=== PATIENT | male | born 1970 | race Caucasian/White ===

== ENCOUNTER 2016-10-18 05:34 | Emergency (ER) | payer BC ==
[~2016-10-18] VITALS: Ht 172.7 cm; Wt 144.1 kg
[2016-10-18 05:37] VITALS: TEMP 36.7; Ht 172.7 cm; Wt 144.1 kg
[2016-10-18] MEDS ORDERED: LSN/10125 PO (06:09)
[2016-10-18] MEDS ORDERED: SERT50TA PO (06:10)
[2016-10-18] MEDS ORDERED: CHN/1 PO (06:11)
[2016-10-18] MEDS ORDERED: HYDR-5688 PO (07:35)
--- NOTE | 2016-10-18 07:36 | EMERGENCY ROOM VISIT NOTE ---
History First contact with patient: 05:41 Chief Complaint: FOOT PAIN Stated Complaint: SEVERE PAIN IN RIGHT FOOT History of Present Illness The patient is a 46 year old male who presents to the Emergency Room with complaints of right foot pain. The patient states that he developed foot pain 3 -4 days ago. The pain has been gradually worsening. This is worse with walking and weightbearing. He states it feels better when he has a boot laced tightly on the foot. He rates his discomfort a 7/10. The pain is located on the outside of the foot. He does state that he used to be a heavy drinker and quit drinking cold turkey 2 weeks ago. He denies any trauma to the foot. He denies any history of gout or arthritis. He denies any numbness or weakness. Review of Systems A complete 6 point review of systems was reviewed with the patient with pertinent positives and negatives as per history of present illness. All else were negative. Social History Smoking Status: Never Smoker Current/Historical Medications Scheduled Hctz/Lisinopril (Lisinopril/Hctz 10/12.5 Mg), 1 TAB PO DAILY Sertraline (Zoloft), 50 MG PO DAILY Varenicline (Chantix), 1 MG PO BID Scheduled PRN Hydrocodone/Acetaminophen 5MG/325MG ([place] 5MG/325MG), 1-2 TABLET PO Q4H PRN for Pain Allergies Coded Allergies: No Known Allergies (Unverified , 10/18/16) Physical Exam Vital Signs Date Time Temp Pulse Resp B/P (MAP) Pulse Ox O2 Delivery O2 Flow Rate FiO2 10/18/16 07:48 85 20 135/87 99 10/18/16 05:37 36.7 98 18 149/90 97 Room Air Physical Exam VITALS: Vitals are noted on the nurse's note and reviewed by myself. Vital signs stable. GENERAL: This is a 46-year-old male, in no acute distress, nondiaphoretic, well- developed well-nourished. SKIN: There is no erythema, ecchymosis or edema. MUSCULOSKELETAL: No deformities. There is tenderness along the lateral aspect of the right foot. No tenderness over the rest of the foot. No tenderness of the ankle. Full range of motion of all toes. Dorsalis pedis pulse 2+. NEURO: Patient was alert and oriented to person place and time. Normal sensation to light and sharp touch. Medical Decision & Procedures ER Provider Diagnostic Interpretation: RIGHT FOOT 3 VIEWS FINDINGS: 3 views of the right foot are obtained. No prior studies are available for comparison at the time of dictation. The skeletal structures are well mineralized. No fracture is seen. Mild degenerative spurring is seen along the dorsal aspect of the tarsal bones. There is a large plantar calcaneal enthesophyte. Mild soft tissue swelling is noted in the foot. IMPRESSION: 1. Mild soft tissue swelling with no radiographic evidence of fracture. 2. Large plantar heel spur. Medical Decision Differential diagnosis includes fracture, contusion, sprain, gout, infection, among others. Patient was evaluated as above. There is no redness or warmth of the foot. X- ray was obtained and shows no acute findings over the area of concern. The patient was concerned for gout because he quit drinking recently. I explained to him that gout is typically associated with heavy drinking and occurs over a joint and I do not feel this is likely the cause of his symptoms today. He could have a stress fracture or muscular injury. He was dazed in a postoperative shoe and instructed to follow-up with his primary care provider or orthopedics. He was given a short course of pain medication. He verbalized understanding of my assessment and treatment plan was discharged home in good condition. Medication reconciliation: I attest that I have personally reviewed the patient 's current medication list. Blood Pressure Screening: Patient was found to have a slightly elevated blood pressure due to circumstances. I do not believe that the patient requires hypertension monitoring. [place] Drug Monitoring Program Search Results: patient reviewed within database, no issues identified Impression Primary Impression: Foot pain Departure Information Dispostion Home / Self-Care Condition GOOD Prescriptions Hydrocodone/Acetaminophen 5MG/325MG ([place] 5MG/325MG) Tab 1-2 TABLET PO Q4H Y for Pain, #10 TAB For Initial Treatment Prov: Gloria Joel ., PITA 10/18/16 Referrals No Doctor, Assigned (PCP) Patient Instructions My [facility] Additional Instructions You have been treated in the Emergency Department for foot pain. You have been prescribed [place] to be used for pain control. This is a narcotic medication. You cannot drive or consume alcohol while on this medicine. This medicine should only be used for pain that cannot be controlled with over-the- counter pain medicines. For pain control, you can use the following [id number] medicines (if >12 yo): - Regular strength (325mg/tab) Tylenol (acetaminophen) 2 tabs every 4-6 hours as needed. Do not exceed 12 tablets in a 24 hour period. Avoid taking more than 4 grams (4000 mg) of Tylenol per day. This includes any other sources of acetaminophen you may take on a regular basis. If this is a recent injury (<24 hrs), ice can be applied to the area of pain for the first 3 days to help decrease pain and inflammation. Wear the Deni wrap and postoperative shoe for the next 3-4 days, then as needed. If you have persistent pain, you should follow-up with your primary care provider. Return to the Emergency Department if your current symptoms worsen despite treatment course outlined above, or if you develop any of the following symptoms : intractable pain despite aforementioned treatment course or new onset of numbness or tingling of the foot. Problem Qualifiers Primary Impression: Foot pain Laterality: right Qualified Codes: M79.671 - Pain in right foot
--- NOTE | 2016-10-18 07:36 | DIAGNOSTIC IMAGING REPORT ---
RIGHT FOOT 3 VIEWS CLINICAL HISTORY: Right foot pain. FINDINGS: 3 views of the right foot are obtained. No prior studies are available for comparison at the time of dictation. The skeletal structures are well mineralized. No fracture is seen. Mild degenerative spurring is seen along the dorsal aspect of the tarsal bones. There is a large plantar calcaneal enthesophyte. Mild soft tissue swelling is noted in the foot. IMPRESSION: 1. Mild soft tissue swelling with no radiographic evidence of fracture. 2. Large plantar heel spur. Electronically signed by: Jeronimo Toribio M.D. 10/18/2016 7:34 AM Dictated Date/Time: 10/18/2016 7:33 AM
[2016-10-18 07:48] VITALS: BP 135/87; PULSE 85; O2SAT 99
== END 2016-10-18 07:49 | disposition home or self-care (01) ==
LOC: C.EDB 05:36
DX: M79.671 Pain in right foot (principal); Z79.899 Other long term (current) drug therapy

== ENCOUNTER 2017-04-18 09:38 | Inpatient (IN) | payer BC, OTHER ==
[~2017-04-18] VITALS: Ht 175.3 cm; Wt 146.0 kg
[~2017-04-18 09:38] MED LIST: CHN/1 PO; HYDR-5688 PO; LSN/10125 PO; SERT50TA PO
[2017-04-18] MEDS ORDERED: SODIUM CHLORIDE 0.9% 500ML 500 ML IV STA (10:04)
[2017-04-18 10:30] LABS: BASO % 0.4 %; BASO ABS # 0.03 K/uL (0-0.2); EOS ABS # 0.07 K/uL (0-0.5); HEMATOCRIT 37.4 % (42-52); HEMOGLOBIN 12.1 g/dL (14.0-18.0); IG# 0.02 K/uL (0.00-0.02); LYMPH % 9.3 %; LYMPH ABS # 0.64 K/uL (1.2-3.4); MEAN CELL VOLUME 74.1 fL (80-100); MEAN CORPUSCULAR HGB CONC 32.4 g/dl (32-36); MEAN PLATELET VOLUME 9.2 fL (7.4-10.4); MONO % 3.6 %; MONO ABS # 0.25 K/uL (0.11-0.59); NEUT % 85.4 %; NEUT ABS # 5.88 K/uL (1.4-6.5); PLATELET COUNT 167 K/uL (130-400); RED CELL DISTRIBUTION WIDTH SD 45.5 fL (36.4-46.3); WHITE BLOOD COUNT 6.89 K/uL (4.8-10.8)
[2017-04-18 10:50] LABS: ALBUMIN 3.6 gm/dl (3.4-5.0); CALCIUM 8.4 mg/dl (8.5-10.1); CREATININE 0.98 mg/dl (0.60-1.40); POTASSIUM 3.4 mmol/L (3.5-5.1)
[2017-04-18] MEDS ORDERED: SODIUM CHLORIDE 0.9% 1000ML 1,000 ML IV STA (10:51)
[2017-04-18] MEDS ORDERED: BUPR-79 PO (10:52)
[2017-04-18] MEDS ORDERED: METF-384 PO (10:52)
[2017-04-18] MEDS ORDERED: ATOR-24 PO (10:52)
[2017-04-18 11:01] LABS: TOTAL PROTEIN 8.3 gm/dl (6.4-8.2)
--- NOTE | 2017-04-18 11:54 | DIAGNOSTIC IMAGING REPORT ---
CHEST ONE VIEW PORTABLE CLINICAL HISTORY: Atrial fibrillation. Weakness. COMPARISON STUDY: No previous studies for comparison. FINDINGS: Lung volumes are at the lower limits of normal. There is no pneumothorax or pleural effusion. There is suspected elevation/eventration of the right hemidiaphragm. There is mild cardiomegaly without evidence of pulmonary edema. There is no consolidation. IMPRESSION: 1. Mild cardiomegaly without evidence of pulmonary edema. 2. Mild elevation/eventration of the right hemidiaphragm. Electronically signed by: Fran Mo M.D. 04/18/2017 11:53 AM Dictated Date/Time: 04/18/2017 11:52 AM
[2017-04-18] MEDS ORDERED: DEXTROSE 50% 50 ML SYR IV PRN (12:15)
[2017-04-18] MEDS ORDERED: GLUCOSE 40% GEL 15 GM TUBE PO PRN (12:15)
[2017-04-18] MEDS ORDERED: GLUCAGON FOR INJ 1 MG VIAL SQ PRN (12:15)
[2017-04-18] MEDS ORDERED: GLUCOSE 10 TABS/TUBE PO PRN (12:15)
[2017-04-18 12:28] VITALS: O2SAT 98; Ht 175.3 cm; Wt 146.0 kg
[2017-04-18] MEDS ORDERED: LORAZEPAM 1 MG TAB PO PRN (12:30)
[2017-04-18] MEDS ORDERED: HEPARIN 25000 UNIT/500 ML D5W ONE (12:54)
[2017-04-18 13:09] LABS: PTT PATIENT 23.2 SECONDS (21.0-31.0)
--- NOTE | 2017-04-18 13:25 | History and Physical ---
History & Physical Date & Time of Service: Apr 18, 2017 at 12:44 Chief Complaint: Severe Depression, Needs Detox (Alcohol) Primary Care Physician: No Doctor, Assigned History of Present Illness Source: patient This patient is a 46-year-old male with a history of obesity status post gastric bypass surgery, depression, hypertension, hyperlipidemia, prediabetes versus diabetes, who presents to the ER with complaint of severe depression and need for alcohol detoxification. He was found in what was thought to be new onset atrial flutter with a rate in the low 100s, as well as a significant transaminitis. However, review of ECGs with marine operations coordinator confirms he is in normal sinus rhythm with artifact. He was found to be dehydrated with hypokalemia and a bicarbonate of 19 with an anion gap. He was initially hypertensive which improved with giving him his home dose of lisinopril/HCT. He denies any chest pain, shortness of breath, abdominal pain, nausea/vomiting, diarrhea, constipation, bloody stools, or any other symptoms. He denies suicidal or homicidal ideations and is very eager to get help for his substance abuse issues. He has no history of alcohol withdrawal in the past. He reports he normally drinks several beers a day with dinner, but for the last week, he has drank 3 large handle jugs of rum in a one-week period. He also reports stopping all of his medications about 2 weeks ago. He will be admitted for alcohol detoxification, hepatitis most likely of the alcoholic type. Past Medical/Surgical History PMH: obesity status post gastric bypass surgery depression hypertension hyperlipidemia prediabetes versus diabetes PSH: Gastric bypass surgery-2001 Ventral hernia repair Tibial osteotomy with and subsequent removal of hardware Tonsillectomy Family History Father-diabetes mellitus type 2 Mother-depression Sister-healthy Social History Smoking Status: Current Every Day Smoker (smoking 5 cigarettes daily) Alcohol Use: heavy (drinks several beers with dinner daily, plus increased amount of liquor in the last week as per history of present illness) Drug Use: none Marital Status: Housing status: lives alone 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) Allergies Coded Allergies: No Known Allergies (Unverified , 04/18/17) Home Medications Scheduled Atorvastatin (Lipitor), 40 MG PO DAILY Bupropion (Wellbutrin Sr), 150 MG PO BID Hctz/Lisinopril (Lisinopril/Hctz 10/12.5 Mg), 1 TAB PO DAILY Metformin Hcl (Glucophage), 1,000 MG PO BID Review of Systems Constitutional: No fever, No chills Eyes: No problem reported ENT: No problem reported Respiratory: No shortness of breath Cardiovascular: No chest pain Abdomen: No pain, No nausea, No vomiting, No diarrhea, No constipation, No GI bleeding Musculoskeletal: No joint pain, No muscle pain Genitourinary - Male: No problem reported Neurologic: No problem reported Psychiatric: + depression symptoms, + anxiety, + substance abuse Endocrine: No problem reported Hematologic / Lymphatic: No problem reported Integumentary: No problem reported Allergic / Immunologic: No problem reported Physical Exam Vital Signs Date Time Temp Pulse Resp B/P (MAP) Pulse Ox O2 Delivery O2 Flow Rate FiO2 04/18/17 12:23 110 04/18/17 11:28 100 18 132/82 98 Room Air 04/18/17 09:40 36.7 102 20 206/122 97 Room Air General Appearance: WD/WN, no apparent distress, + obese Head: normocephalic, atraumatic Eyes: normal inspection, PERRL, EOMI, sclerae normal ENT: normal ENT inspection, hearing grossly normal, TMs normal, pharynx normal Neck: supple, no adenopathy, thyroid normal, trachea midline Respiratory/Chest: lungs clear, normal breath sounds, no respiratory distress, no accessory muscle use Cardiovascular: regular rate, rhythm, no edema, no gallop, no murmur, normal peripheral pulses Abdomen/GI: normal bowel sounds, non tender, soft, no organomegaly Back: normal inspection Extremities/Musculoskelatal: no calf tenderness, normal capillary refill, no pedal edema, normal range of motion Neurologic/Psych: alert, oriented x 3, + pertinent finding (anxious) Skin: normal color, warm/dry, no rash Lymphatic: no adenopathy Diagnostics Laboratory Results Results Past 24 Hours Test 04/18/17 10:15 04/18/17 10:16 04/18/17 12:09 Range/Units Urine Color DK YELLOW Urine Appearance CLEAR CLEAR Urine pH 5.0 4.5-7.5 Urine Specific Joiner 1.022 1.000-1.030 Urine Protein 2+ NEG Urine Glucose (UA) NEG NEG Urine Ketones 3+ NEG Urine Occult Blood 2+ NEG Urine Nitrite NEG NEG Urine Bilirubin NEG NEG Urine Urobilinogen NEG NEG Urine Leukocyte Esterase NEG NEG Urine WBC (Auto) 1-5 0-5 /hpf Urine RBC (Auto) 0-4 0-4 /hpf Urine Hyaline Casts (Auto) 10-30 0-5 /lpf Urine Epithelial Cells (Auto) 20-30 0-5 /lpf Urine Bacteria (Auto) NEG NEG Urine Opiates Screen NEG NEG Urine Methadone, Qualitative NEG NEG Urine Barbiturates NEG NEG Urine Phencyclidine (PCP) Level NEG NEG Ur Amphetamine/Methamphetamine NEG NEG MDMA (Ecstasy) Screen NEG NEG Urine Benzodiazepines Screen NEG NEG Urine Cocaine Metabolite NEG NEG Urine Marijuana (THC) NEG NEG White Blood Count 6.89 4.8-10.8 K/uL Red Blood Count 5.05 4.7-6.1 M/uL Hemoglobin 12.1 14.0-18.0 g/dL Hematocrit 37.4 42-52 % Mean Corpuscular Volume 74.1 80-100 fL Mean Corpuscular Hemoglobin 24.0 25-34 pg Mean Corpuscular Hemoglobin Concent 32.4 32-36 g/dl Platelet Count 167 130-400 K/uL Mean Platelet Volume 9.2 7.4-10.4 fL Neutrophils (%) (Auto) 85.4 % Lymphocytes (%) (Auto) 9.3 % Monocytes (%) (Auto) 3.6 % Eosinophils (%) (Auto) 1.0 % Basophils (%) (Auto) 0.4 % Neutrophils # (Auto) 5.88 1.4-6.5 K/uL Lymphocytes # (Auto) 0.64 1.2-3.4 K/uL Monocytes # (Auto) 0.25 0.11-0.59 K/uL Eosinophils # (Auto) 0.07 0-0.5 K/uL Basophils # (Auto) 0.03 0-0.2 K/uL RDW Standard Deviation 45.5 36.4-46.3 fL RDW Coefficient of Variation 17.0 11.5-14.5 % Immature Granulocyte % (Auto) 0.3 % Immature Granulocyte # (Auto) 0.02 0.00-0.02 K/uL Sodium Level 134 136-145 mmol/L Potassium Level 3.4 3.5-5.1 mmol/L Chloride Level 96 98-107 mmol/L Carbon Dioxide Level 19 21-32 mmol/L Anion Gap 19.0 3-11 mmol/L Blood Urea Nitrogen 7 7-18 mg/dl Creatinine 0.98 0.60-1.40 mg/dl Est Creatinine Clear Calc Drug Dose 136.5 ml/min Estimated GFR () 108.2 Estimated GFR (Non- 93.4 BUN/Creatinine Ratio 7.1 10-20 Random Glucose 107 70-99 mg/dl Calcium Level 8.4 8.5-10.1 mg/dl Total Bilirubin 0.5 0.2-1 mg/dl Direct Bilirubin 0.2 0-0.2 mg/dl Aspartate Amino Transf (AST/SGOT) 1600 15-37 U/L Alanine Aminotransferase (ALT/SGPT) 884 12-78 U/L Alkaline Phosphatase 130 45-117 U/L Total Creatine Kinase 1029 39-308 U/L Total Protein 8.3 6.4-8.2 gm/dl Albumin 3.6 3.4-5.0 gm/dl Lipase 173 73-393 U/L Thyroid Stimulating Hormone (TSH) 1.390 0.300-4.500 uIu/ml Salicylates Level 3.6 2.8-20 mg/dl Acetaminophen Level < 2 10-30 ug/ml Ethyl Alcohol mg/dL 114.0 0-3 mg/dl Diagnostic Radiology Chest x-ray with mild cardiomegaly, elevated right hemidiaphragm, personally reviewed by me and agree with radiology report EKG Initial ECG with normal sinus rhythm, rate 94, artifact-confirmed normal sinus rhythm with marine operations coordinator Dr. William Repeat ECG with sinus tachycardia with short PA, rate 103, no acute ischemic changes Impression Assessment and Plan This patient is a 46-year-old male with a history of obesity status post gastric bypass surgery, depression, hypertension, hyperlipidemia, prediabetes versus diabetes, who presents to the ER with complaint of severe depression and need for alcohol detoxification. He was found in what was thought to be new onset atrial flutter with a rate in the low 100s, as well as a significant transaminitis. However, review of ECGs with marine operations coordinator confirms he is in normal sinus rhythm with artifact. He was found to be dehydrated with hypokalemia and a bicarbonate of 19 with an anion gap. He was initially hypertensive which improved with giving him his home dose of lisinopril/HCT. He denies any chest pain, shortness of breath, abdominal pain, nausea/vomiting, diarrhea, constipation, bloody stools, or any other symptoms. He denies suicidal or homicidal ideations and is very eager to get help for his substance abuse issues. He has no history of alcohol withdrawal in the past. He reports he normally drinks several beers a day with dinner, but for the last week, he has drank 3 large handle jugs of rum in a one-week period. He also reports stopping all of his medications about 2 weeks ago. He will be admitted for alcohol detoxification, hepatitis most likely of the alcoholic type. Alcohol abuse/alcohol detoxification/metabolic acidosis/hypokalemia-no history of significant withdrawal in the past. Alcohol level 114 on admission. Dehydrated from poor by mouth intake over the last week -Monitor on telemetry -Alcohol withdrawal protocol with when necessary Ativan only at this time -Banana bag daily for 3 days, then transitioned to by mouth thiamine and B12 -Check B12 and thiamine levels -Encouraged abstinence -Agreeable to outpatient therapy upon discharge as per psychiatric consultation -Sinus tachycardia, not atrial flutter as initially suspected on admission- should respond to IV fluids -Replace potassium in IV fluids -Follow PRP Hepatitis-AST 1600, ALT 884, bilirubin is normal, no abdominal pain. Most likely alcoholic hepatitis and would be reversible. Platelets are normal, INR not drawn in ER. -Check liver ultrasound -Check acute viral hepatitis panel, follow LFTs daily -Check INR now -Encouraged abstinence from alcohol and this should resolve Depression-likely exacerbated by stopping antidepressant medication 2 weeks ago. He is currently not suicidal or homicidal. -Appreciate psychiatric consultation -Restart his Wellbutrin 150 mg SR by mouth twice a day and appreciate any further recommendations from psychiatry Hypertension/hyperlipidemia-blood pressure elevated on admission, improved with giving home dose of lisinopril/HCTZ -Continue lisinopril/HCT -Holding atorvastatin given transaminitis Prediabetes/borderline diabetic-as per history. -Check hemoglobin A1c -Holding metformin while inpatient -Sliding-scale insulin with carbohydrate coverage with meals and Accu-Cheks Prophylaxis-heparin subcutaneous Disposition-to home when medically stable Full code Level of Care Telemetry Resuscitation Status FULL RESUSCITATION VTE Prophylaxis VTE Risk Assessment Done? Y/N: Yes Risk Level: Moderate Given or contraindicated: Unfractionated heparin SQ
--- NOTE | 2017-04-18 13:43 | DIAGNOSTIC IMAGING REPORT ---
ABDOMINAL ULTRASOUND, RIGHT UPPER QUADRANT HISTORY: Elevated liver function tests. COMPARISON: None. FINDINGS: This exam is significantly compromised by suboptimal penetration. Hepatic echogenicity is increased. This suggests fatty infiltration. There is no biliary ductal dilatation. No gallstones are identified. The pancreas is obscured due to suboptimal penetration. There is no right hydronephrosis. IMPRESSION: 1. Technically difficult study due to suboptimal penetration. No gallstones or biliary ductal dilatation identified. Obscured pancreas. 2. Fatty liver. Electronically signed by: Fran Mo M.D. 04/18/2017 1:41 PM Dictated Date/Time: 04/18/2017 1:40 PM
--- NOTE | 2017-04-18 13:56 | EMERGENCY ROOM VISIT NOTE ---
History Report prepared by Charlie: Pankaj Bermudez Under the Supervision of: Dr. Kiet Lopez D.O. First contact with patient: 09:53 Chief Complaint: DETOX REQUEST Stated Complaint: SEVERE DEPRESSION, NEEDS DETOX (ALCOHOL) History of Present Illness The patient is a 46 year old male who presents to the Emergency Room for a detox request due to excessive alcohol drinking for the past week and a half. The patient states that he has been feeling depressed for the past week and a half starting after visiting his family during [place]. He states that he stopped taking his medications a week and a half ago, and has been held up in his house self-medicating with alcohol. The patient reports that he is drinking a little less than a fifth of liquor per day, and prior to the past week and a half he would drink a six pack of beer every night for the past couple of months. He states that his last drink of alcohol was last night. He notes that he has not been taking his Wellbutrin and has not taken his lisinopril, and he also states that he is a diabetic. The patient states that he has not been eating for the past couple of days, and he denies any suicidal ideations, homicidal ideations, and any hallucinations. He states that he has not been any fights recently, and he still has a job. The patient has no other psych disorders other than depression. Pt denies headache, change in vision, fevers, chest pain, shortness of breath, nausea, vomiting, diarrhea, pain with urination , and melena. Source of History: patient Onset: a week and a half ago Position: other (global) Quality: other (Detox request due to excessive alcohol consumption) Timing: constant Note: Associated symptoms: Depression Review of Systems See HPI for pertinent positives & negatives. A total of 10 systems reviewed and were otherwise negative. Past Medical & Surgical Medical Problems: (1) Atrial flutter with rapid ventricular response (2) Hepatitis Social History Smoking Status: Current Every Day Smoker Marital Status: single Housing Status: lives alone Occupation Status: employed Current/Historical Medications Scheduled Atorvastatin (Lipitor), 40 MG PO DAILY Bupropion (Wellbutrin Sr), 150 MG PO BID Hctz/Lisinopril (Lisinopril/Hctz 10/12.5 Mg), 1 TAB PO DAILY Metformin Hcl (Glucophage), 1,000 MG PO BID Allergies Coded Allergies: No Known Allergies (Unverified , 04/18/17) Physical Exam Vital Signs Date Time Temp Pulse Resp B/P (MAP) Pulse Ox O2 Delivery O2 Flow Rate FiO2 04/18/17 12:28 98 Room Air 04/18/17 12:23 110 04/18/17 11:28 100 18 132/82 98 Room Air 04/18/17 09:40 36.7 102 20 206/122 97 Room Air Physical Exam GENERAL: Sitting up in bed, depressed, non-toxic, and in no acute distress. EYE EXAM: normal conjunctiva. OROPHARYNX: no exudate, no erythema, lips, buccal mucosa, and tongue normal and mucous membranes are moist NECK: supple, no nuchal rigidity, no adenopathy, non-tender LUNGS: Clear to auscultation. Normal chest wall mechanics HEART: no murmurs, S1 normal and S2 normal ABDOMEN: abdomen soft, non-tender, normo-active bowel sounds, no masses, no rebound or guarding. BACK: Back is symmetrical on inspection and there is no deformity, no midline tenderness, no CVA tenderness. SKIN: no rashes and no bruising UPPER EXTREMITIES: upper extremities are grossly normal. LOWER EXTREMITIES: No pitting edema. NEURO EXAM: Normal sensorium, cranial nerves II-XII grossly intact, normal speech, no gross weakness of arms, no gross weakness of legs. Gross sensation intact. PSYCH: Denies any suicidal or homicidal ideations along with auditory or visual hallucinations. Medical Decision & Procedures ER Provider Diagnostic Interpretation: Radiology results as stated below per my review and the radiologist's interpretation: CHEST ONE VIEW PORTABLE CLINICAL HISTORY: Atrial fibrillation. Weakness. COMPARISON STUDY: No previous studies for comparison. FINDINGS: Lung volumes are at the lower limits of normal. There is no pneumothorax or pleural effusion. There is suspected elevation/eventration of the right hemidiaphragm. There is mild cardiomegaly without evidence of pulmonary edema. There is no consolidation. IMPRESSION: 1. Mild cardiomegaly without evidence of pulmonary edema. 2. Mild elevation/eventration of the right hemidiaphragm. Electronically signed by: Fran Mo M.D. 04/18/2017 11:53 AM Dictated Date/Time: 04/18/2017 11:52 AM ABDOMINAL ULTRASOUND, RIGHT UPPER QUADRANT HISTORY: Elevated liver function tests. COMPARISON: None. FINDINGS: This exam is significantly compromised by suboptimal penetration. Hepatic echogenicity is increased. This suggests fatty infiltration. There is no biliary ductal dilatation. No gallstones are identified. The pancreas is obscured due to suboptimal penetration. There is no right hydronephrosis. IMPRESSION: 1. Technically difficult study due to suboptimal penetration. No gallstones or biliary ductal dilatation identified. Obscured pancreas. 2. Fatty liver. Electronically signed by: Fran Mo M.D. 04/18/2017 1:41 PM Dictated Date/Time: 04/18/2017 1:40 PM Laboratory Results 04/18/17 10:16 Red Blood Count 5.05, Mean Corpuscular Volume 74.1, Mean Corpuscular Hemoglobin 24.0, Mean Corpuscular Hemoglobin Concent 32.4, Mean Platelet Volume 9.2, Neutrophils (%) (Auto) 85.4, Lymphocytes (%) (Auto) 9.3, Monocytes (%) (Auto) 3.6, Eosinophils (%) (Auto) 1.0, Basophils (%) (Auto) 0.4, Neutrophils # (Auto) 5.88, Lymphocytes # (Auto) 0.64, Monocytes # (Auto) 0.25, Eosinophils # (Auto) 0.07, Basophils # (Auto) 0.03 04/18/17 10:16 Test 04/18/17 10:15 04/18/17 10:16 Urine Color DK YELLOW Urine Appearance CLEAR (CLEAR) Urine pH 5.0 (4.5-7.5) Urine Specific Hext 1.022 (1.000-1.030) Urine Protein 2+ (NEG) Urine Glucose (UA) NEG (NEG) Urine Ketones 3+ (NEG) Urine Occult Blood 2+ (NEG) Urine Nitrite NEG (NEG) Urine Bilirubin NEG (NEG) Urine Urobilinogen NEG (NEG) Urine Leukocyte Esterase NEG (NEG) Urine WBC (Auto) 1-5 /hpf (0-5) Urine RBC (Auto) 0-4 /hpf (0-4) Urine Hyaline Casts (Auto) 10-30 /lpf (0-5) Urine Epithelial Cells (Auto) 20-30 /lpf (0-5) Urine Bacteria (Auto) NEG (NEG) Urine Opiates Screen NEG (NEG) Urine Methadone, Qualitative NEG (NEG) Urine Barbiturates NEG (NEG) Urine Phencyclidine (PCP) Level NEG (NEG) Ur Amphetamine/Methamphetamine NEG (NEG) MDMA (Ecstasy) Screen NEG (NEG) Urine Benzodiazepines Screen NEG (NEG) Urine Cocaine Metabolite NEG (NEG) Urine Marijuana (THC) NEG (NEG) White Blood Count 6.89 K/uL (4.8-10.8) Red Blood Count 5.05 M/uL (4.7-6.1) Hemoglobin 12.1 g/dL (14.0-18.0) Hematocrit 37.4 % (42-52) Mean Corpuscular Volume 74.1 fL (80-100) Mean Corpuscular Hemoglobin 24.0 pg (25-34) Mean Corpuscular Hemoglobin Concent 32.4 g/dl (32-36) Platelet Count 167 K/uL (130-400) Mean Platelet Volume 9.2 fL (7.4-10.4) Neutrophils (%) (Auto) 85.4 % Lymphocytes (%) (Auto) 9.3 % Monocytes (%) (Auto) 3.6 % Eosinophils (%) (Auto) 1.0 % Basophils (%) (Auto) 0.4 % Neutrophils # (Auto) 5.88 K/uL (1.4-6.5) Lymphocytes # (Auto) 0.64 K/uL (1.2-3.4) Monocytes # (Auto) 0.25 K/uL (0.11-0.59) Eosinophils # (Auto) 0.07 K/uL (0-0.5) Basophils # (Auto) 0.03 K/uL (0-0.2) RDW Standard Deviation 45.5 fL (36.4-46.3) RDW Coefficient of Variation 17.0 % (11.5-14.5) Immature Granulocyte % (Auto) 0.3 % Immature Granulocyte # (Auto) 0.02 K/uL (0.00-0.02) Prothrombin Time 10.7 SECONDS (9.0-12.0) Prothromb Time International Ratio 1.0 (0.9-1.1) Activated Partial Thromboplast Time 23.2 SECONDS (21.0-31.0) Partial Thromboplastin Ratio 0.9 Anion Gap 19.0 mmol/L (3-11) Est Creatinine Clear Calc Drug Dose 136.5 ml/min Estimated GFR () 108.2 Estimated GFR (Non- 93.4 BUN/Creatinine Ratio 7.1 (10-20) Calcium Level 8.4 mg/dl (8.5-10.1) Total Bilirubin 0.5 mg/dl (0.2-1) Direct Bilirubin 0.2 mg/dl (0-0.2) Aspartate Amino Transf (AST/SGOT) 1600 U/L (15-37) Alanine Aminotransferase (ALT/SGPT) 884 U/L (12-78) Alkaline Phosphatase 130 U/L (45-117) Total Creatine Kinase 1029 U/L (39-308) Total Protein 8.3 gm/dl (6.4-8.2) Albumin 3.6 gm/dl (3.4-5.0) Lipase 173 U/L (73-393) Thyroid Stimulating Hormone (TSH) 1.390 uIu/ml (0.300-4.500) Salicylates Level 3.6 mg/dl (2.8-20) Acetaminophen Level < 2 ug/ml (10-30) Ethyl Alcohol mg/dL 114.0 mg/dl (0-3) Laboratory results per my review. Medications Administered Medications (Trade) Dose Ordered Sig/Donald Route Start Time Stop Time Status Last Admin Dose Admin Sodium Chloride 500 ml @ 999 mls/hr Q31M STAT IV 04/18/17 10:04 04/18/17 10:34 DC 04/18/17 10:22 999 MLS/HR Sodium Chloride 1,000 ml @ 999 mls/hr Q1H1M STAT IV 04/18/17 10:51 04/18/17 11:51 DC 04/18/17 10:51 999 MLS/HR ECG Indication: toxicologic Rate (beats per minute): 94 Rhythm: atrial flutter (with variable black) Findings: Q waves (Septal), other (Normal axis, non-specific ST wave changes in the anterior leads) Comparison ECG Date: no prior available ED Course ED COURSE: Vital signs were reviewed and showed hypertension and tachycardia. The patients medical record was reviewed The above diagnostic studies were performed and reviewed. ED treatments and interventions as stated above. 0953: The patient was evaluated in room B9. A complete history and physical examination was performed. 1004: Sodium Chloride 500 ml @ 999 mls/hr IV 1051: Sodium Chloride 1000 ml @ 999 mls/hr IV 1110: I reevaluated the patient, and he was doing okay 1124: Upon reevaluation, the patient is doing well.I discussed my findings with the patient and he understands and agrees with the treatment plan. Based on the patients age, coexisting illnesses, exam and lab findings the decision to treat as an inpatient was made. The patient remained stable while under my care. The patient will be evaluated for further management. 1128: I reviewed the patient's case with Dr. Rubalcava. She will evaluate the patient for further management. Medical Decision Differential diagnosis: Etiologies such as mood disorder, infection, hypoglycemia, electrolyte abnormalities, cardiac sources, intracerebral event, toxicologic, neurologic, as well as others were entertained. Patient is a 46-year-old male who presents to ER for depression associated with alcohol abuse. He wants to go to rehabilitation. He is uncertain of why he is so depressed. He has been drinking a sixpack for the past several months but over the past 2 weeks with his depression he has been drinking close to a fifth of alcohol today. Labs were obtained along with an EKG as he was hypertensive and tachycardic. EKG shows atrial flutter with a variable block. CBC was unremarkable. BMP shows hypernatremia along with hypokalemia and a bicarbonate 19. Anion gap at 19. Creatinine was normal at 0.9. Patient has an impressive transaminitis with an AST is 1600 and a LT of 900. Alkaline phosphatase was elevated along with CK of the thousand. TSH was normal at 1.3. Patient was given fluids and he took his home dose of lisinopril. On recheck his blood pressure came down to 130s. Favor that his symptoms are secondary to alcohol and depression. Salicylates and Tylenol were negative. UA showed ketones consistent with presentation. Do not treat a flutter with RVR has his heart return down to 100 with fluids and I favor this second or 2 the alcohol as well. Patient was updated bedside admitted to internal medicine for hepatitis along with atrial flutter with RVR. Medication Reconcilliation Current Medication List: was personally reviewed by me Blood Pressure Screening Patient's blood pressure: Elevated blood pressure Blood pressure disposition: Referred to PCP Consults Time Called: 1124 Consulting Physician: Dr. Rubalcava Returned Call: 1128 I reviewed the patient's case with Dr. Rubalcava. She will evaluate the patient for further management. Impression Primary Impression: Atrial flutter with rapid ventricular response Additional Impressions: Hepatitis Hypokalemia Scribe Attestation The scribe's documentation has been prepared under my direction and personally reviewed by me in its entirety. I confirm that the note above accurately reflects all work, treatment, procedures, and medical decision making performed by me. Departure Information Dispostion Being Evaluated By Hospitalist Referrals No Doctor, Assigned (PCP) Patient Instructions My [facility] Problem Qualifiers
[2017-04-18] MEDS ORDERED: HEPARIN SOD 5000 UNIT/0.5 ML CARP SQ SCH (14:00)
[2017-04-18] MEDS ORDERED: PERFLUTREN LIPID MICROSPHERE (DEFINITY) IV ONE (14:09)
[2017-04-18 14:38] LABS: HEP C IGG 13 YRS+OLDER_RFLX NEG (NEG)
[2017-04-18] MEDS ORDERED: MULTI-VITAMIN INFUSION INJ 10 ML, THIAMINE HCL INJ 100 MG, FoLIC ACID INJ 1 MG in SODIU... IV SCH (15:00)
[2017-04-18 15:36] VITALS: BP 160/96; PULSE 109; TEMP 36.5; O2SAT 97
[2017-04-18] MEDS ORDERED: PNEUMOCOCCAL ADMINISTRATION CHARGE ONE (16:00)
[2017-04-18] MEDS ORDERED: PNEUMOCOCCAL POLYSACCHARIDES 25 MCG/0.5 ML VIAL/SYR IM. ONE (16:00)
[2017-04-18] MEDS: HEPARIN SOD 5000 UNIT/0.5 ML CARP SQ SCH ×2 (16:59→21:45)
[2017-04-18] MEDS: INSULIN HUMAN REGULAR SC SCH ×2 (16:59→20:21)
[2017-04-18] MEDS: NSS + 20MEQ KCL 1000ML 1,000 ML IV SCH (17:22)
[2017-04-18] MEDS: LORAZEPAM 0.5 MG TAB PO PRN ×2 (18:12→20:26)
[2017-04-18 19:30] LABS: CKMB 9.5 ng/ml (0.5-3.6)
[2017-04-18 20:13] VITALS: BP 114/86; PULSE 124; TEMP 36.7; O2SAT 99
[2017-04-18] MEDS: BuPROPion SR 150 MG TABCR PO SCH (20:19)
[2017-04-18 22:38] VITALS: BP 100/50; PULSE 101
[2017-04-18 23:48] VITALS: BP 137/94; PULSE 106; TEMP 36.6; O2SAT 98
[2017-04-19] VITALS (9 sets, daily range): BP systolic 139–153; BP diastolic 80–96; PULSE 87–98; TEMP 36.2–37.5; O2SAT 96–99
[2017-04-19 03:08] LABS: CKMB 5.7 ng/ml (0.5-3.6)
[2017-04-19 06:08] LABS: BASO % 0.2 %; BASO ABS # 0.01 K/uL (0-0.2); EOS % 3.7 %; EOS ABS # 0.15 K/uL (0-0.5); HEMATOCRIT 34.6 % (42-52); HEMOGLOBIN 11.1 g/dL (14.0-18.0); IG# 0.01 K/uL (0.00-0.02); LYMPH ABS # 0.65 K/uL (1.2-3.4); MEAN CELL VOLUME 73.8 fL (80-100); MEAN CORPUSCULAR HEMOGLOBIN 23.7 pg (25-34); MEAN CORPUSCULAR HGB CONC 32.1 g/dl (32-36); MEAN PLATELET VOLUME 9.1 fL (7.4-10.4); MONO % 4.9 %; NEUT ABS # 3.05 K/uL (1.4-6.5); PLATELET COUNT 138 K/uL (130-400); RED CELL DISTRIBUTION WIDTH CV 16.8 % (11.5-14.5); RED CELL DISTRIBUTION WIDTH SD 44.9 fL (36.4-46.3); WHITE BLOOD COUNT 4.07 K/uL (4.8-10.8)
[2017-04-19] MEDS: HEPARIN SOD 5000 UNIT/0.5 ML CARP SQ SCH ×3 (06:09→21:24)
[2017-04-19] MEDS: NSS + 20MEQ KCL 1000ML 1,000 ML IV SCH (06:12)
[2017-04-19 06:46] LABS: ALBUMIN 3.2 gm/dl (3.4-5.0); CALCIUM 8.9 mg/dl (8.5-10.1); POTASSIUM 3.3 mmol/L (3.5-5.1)
[2017-04-19] MEDS ORDERED: POTASSIUM CHLORIDE 10 MEQ TABCR PO STA (07:15)
[2017-04-19] MEDS: LISINOPRIL/HCTZ 10/12.5MG TAB PO SCH (07:51)
[2017-04-19] MEDS: BuPROPion SR 150 MG TABCR PO SCH (07:51)
[2017-04-19] MEDS: INSULIN HUMAN REGULAR SC SCH ×5 (07:56→22:00)
[2017-04-19] MEDS: MULTI-VITAMIN INFUSION INJ 10 ML, THIAMINE HCL INJ 100 MG, FoLIC ACID INJ 1 MG in SODIU... IV SCH (07:59)
[2017-04-19 08:30] LABS: HEMOGLOBIN A1C 6.7 % (4.5-5.6)
--- NOTE | 2017-04-19 09:02 | Psychiatric Consultation ---
Consultation Date of Consultation Apr 19, 2017. Identifying Data 46 yo male from [place] admit on 04/18/17 for ?aflutter, transaminitis and dehydration/electrolyte disturbance in the context of alcohol binge. Consult is by Dr. Rubalcava for depression. Chief Complaint "I want to get my health on track". History of Present Illness Pt admittedly drinking excessively over the holidays, off work for a week and spent the time drinking 3 large bottles of rum. He attributes the increase to the holidays being triggering as he is and his siblings are happily . He has been less focussed on his health/compliant with follow-up appointments in the past 2 years (since his divorce). His wfie was a heavy drinker and experienced significant personality change due to this and other substance abuse. 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 Overall he relates that much of this year as been good. 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 He was started on Wellbutrin "maybe" six months ago at a walk-in clinic but has never taken it consistently and in fact stopped all together over the holiday break. His sleep has been disrupted at times, mainly due to ETOH use and admits that he was regularly drinking up to 10 beers a night at times after work, even to the point that he wasn't eating dinner. He states that he "self-detoxed" this year and is aware that would put him at risk of seizure, particularly in combination with Wellbutrin. He takes his second dose of Wellbutrin in the afternoon so doesn't feel that it affects his sleep. He is embarrassed by his behavior but hopeful that he can make changes and clearly denies any SI/HI. Past Psychiatric History Current OP Treatment: no current treatment (other than meds through primary care) Prior OP Treatment: therapist (1 year ago, can't recall name) Prior Psych Hospitalizations: none Access to a Gun: No Suicide Attempts: No Past Medication Trials Paxil 10 years ago, Lexapro 2 years ago Past Medical/Surgical History History of Concussion/Seizure: No (1) H/O gastric bypass (2) Hepatitis (3) Hypokalemia (4) Atrial flutter with rapid ventricular response (5) Hyperlipidemia (6) Insulin resistance Allergies Allergies: Coded Allergies: No Known Allergies (Unverified , 04/18/17) Home Medications Scheduled Atorvastatin (Lipitor), 40 MG PO DAILY Bupropion (Wellbutrin Sr), 150 MG PO BID Hctz/Lisinopril (Lisinopril/Hctz 10/12.5 Mg), 1 TAB PO DAILY Metformin Hcl (Glucophage), 1,000 MG PO BID Family History History of Suicide: No History of Substance Abuse: No Psychiatric History: Yes (mother--depression) Alcohol Use Alcohol Use In Past 12 Months: Yes as above, no hx of DTs Smoking Use Smoking Status: Current Every Day Smoker Substance History denied Personal History Lives in: 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 Examination Vital Signs Vital Signs Past 12 Hours Date Time Temp Pulse Resp B/P (MAP) Pulse Ox O2 Delivery O2 Flow Rate FiO2 04/19/17 07:20 36.2 87 20 146/96 (113) 97 Room Air 04/19/17 04:00 Room Air 04/19/17 03:45 37.1 96 22 149/85 (106) 97 Room Air 04/18/17 23:59 Room Air 04/18/17 23:48 36.6 106 23 137/94 (108) 98 Room Air 04/18/17 22:38 101 100/50 (67) Laboratory Results Last 24 Hours Test 04/18/17 10:15 04/18/17 10:16 04/18/17 16:44 04/18/17 18:43 Urine Color DK YELLOW Urine Appearance CLEAR Urine pH 5.0 Urine Specific Dillon 1.022 Urine Protein 2+ Urine Glucose (UA) NEG Urine Ketones 3+ Urine Occult Blood 2+ Urine Nitrite NEG Urine Bilirubin NEG Urine Urobilinogen NEG Urine Leukocyte Esterase NEG Urine WBC (Auto) 1-5 /hpf Urine RBC (Auto) 0-4 /hpf Urine Hyaline Casts (Auto) 10-30 /lpf Urine Epithelial Cells (Auto) 20-30 /lpf Urine Bacteria (Auto) NEG Urine Opiates Screen NEG Urine Methadone, Qualitative NEG Urine Barbiturates NEG Urine Phencyclidine (PCP) Level NEG Ur Amphetamine/Methamphetamine NEG MDMA (Ecstasy) Screen NEG Urine Benzodiazepines Screen NEG Urine Cocaine Metabolite NEG Urine Marijuana (THC) NEG White Blood Count 6.89 K/uL Red Blood Count 5.05 M/uL Hemoglobin 12.1 g/dL Hematocrit 37.4 % Mean Corpuscular Volume 74.1 fL Mean Corpuscular Hemoglobin 24.0 pg Mean Corpuscular Hemoglobin Concent 32.4 g/dl Platelet Count 167 K/uL Mean Platelet Volume 9.2 fL Neutrophils (%) (Auto) 85.4 % Lymphocytes (%) (Auto) 9.3 % Monocytes (%) (Auto) 3.6 % Eosinophils (%) (Auto) 1.0 % Basophils (%) (Auto) 0.4 % Neutrophils # (Auto) 5.88 K/uL Lymphocytes # (Auto) 0.64 K/uL Monocytes # (Auto) 0.25 K/uL Eosinophils # (Auto) 0.07 K/uL Basophils # (Auto) 0.03 K/uL RDW Standard Deviation 45.5 fL RDW Coefficient of Variation 17.0 % Immature Granulocyte % (Auto) 0.3 % Immature Granulocyte # (Auto) 0.02 K/uL Prothrombin Time 10.7 SECONDS Prothromb Time International Ratio 1.0 Activated Partial Thromboplast Time 23.2 SECONDS Partial Thromboplastin Ratio 0.9 Sodium Level 134 mmol/L Potassium Level 3.4 mmol/L Chloride Level 96 mmol/L Carbon Dioxide Level 19 mmol/L Anion Gap 19.0 mmol/L Blood Urea Nitrogen 7 mg/dl Creatinine 0.98 mg/dl Est Creatinine Clear Calc Drug Dose 136.5 ml/min Estimated GFR () 108.2 Estimated GFR (Non- 93.4 BUN/Creatinine Ratio 7.1 Random Glucose 107 mg/dl Estimated Average Glucose 146 mg/dl Hemoglobin A1c 6.7 % Calcium Level 8.4 mg/dl Total Bilirubin 0.5 mg/dl Direct Bilirubin 0.2 mg/dl Aspartate Amino Transf (AST/SGOT) 1600 U/L Alanine Aminotransferase (ALT/SGPT) 884 U/L Alkaline Phosphatase 130 U/L Total Creatine Kinase 1029 U/L 981 U/L Total Protein 8.3 gm/dl Albumin 3.6 gm/dl Lipase 173 U/L Thyroid Stimulating Hormone (TSH) 1.390 uIu/ml Salicylates Level 3.6 mg/dl Acetaminophen Level < 2 ug/ml Ethyl Alcohol mg/dL 114.0 mg/dl Hepatitis B Surface Antigen NEG Hepatitis C Antibody NEG Bedside Glucose 243 mg/dl Creatine Kinase MB 9.5 ng/ml Creatine Kinase MB Ratio 1.0 Troponin I < 0.015 ng/ml Test 04/18/17 20:10 04/19/17 02:21 04/19/17 05:53 Bedside Glucose 206 mg/dl Total Creatine Kinase 842 U/L Creatine Kinase MB 5.7 ng/ml Creatine Kinase MB Ratio 0.7 Troponin I < 0.015 ng/ml White Blood Count 4.07 K/uL Red Blood Count 4.69 M/uL Hemoglobin 11.1 g/dL Hematocrit 34.6 % Mean Corpuscular Volume 73.8 fL Mean Corpuscular Hemoglobin 23.7 pg Mean Corpuscular Hemoglobin Concent 32.1 g/dl Platelet Count 138 K/uL Mean Platelet Volume 9.1 fL Neutrophils (%) (Auto) 75.0 % Lymphocytes (%) (Auto) 16.0 % Monocytes (%) (Auto) 4.9 % Eosinophils (%) (Auto) 3.7 % Basophils (%) (Auto) 0.2 % Neutrophils # (Auto) 3.05 K/uL Lymphocytes # (Auto) 0.65 K/uL Monocytes # (Auto) 0.20 K/uL Eosinophils # (Auto) 0.15 K/uL Basophils # (Auto) 0.01 K/uL RDW Standard Deviation 44.9 fL RDW Coefficient of Variation 16.8 % Immature Granulocyte % (Auto) 0.2 % Immature Granulocyte # (Auto) 0.01 K/uL Sodium Level 133 mmol/L Potassium Level 3.3 mmol/L Chloride Level 97 mmol/L Carbon Dioxide Level 29 mmol/L Anion Gap 7.0 mmol/L Blood Urea Nitrogen 7 mg/dl Creatinine 1.00 mg/dl Est Creatinine Clear Calc Drug Dose 133.8 ml/min Estimated GFR () 105.6 Estimated GFR (Non- 91.1 BUN/Creatinine Ratio 7.4 Random Glucose 152 mg/dl Calcium Level 8.9 mg/dl Magnesium Level 1.7 mg/dl Iron Level 39 mcg/dl Total Iron Binding Capacity 378 mcg/dl Transferrin 292 mg/dl Transferrin % Saturation 10 % Ferritin 95.7 ng/ml Total Bilirubin 0.7 mg/dl Direct Bilirubin 0.2 mg/dl Aspartate Amino Transf (AST/SGOT) 914 U/L Alanine Aminotransferase (ALT/SGPT) 732 U/L Alkaline Phosphatase 154 U/L Total Protein 7.0 gm/dl Albumin 3.2 gm/dl Mental Examination During interview pt is: alert and oriented Appearance: appropriately groomed Eye contact is: good Motor behavior is: no abnormal motor movements Speech: normal in rate, rhythm & volume Affect: mood congruent (but broad, brightens spontaneously) Mood is: depressed Thought process: clear, coherent Thought content: reality based without delusions Suicidal thought are: denied Homicidal thoughts are: denied Hallucinations: denies auditory, denies visual Cognition: memory grossly intact, attention grossly intact, language grossly intact Intelligence estimated to be: consistent with level of education Insight: fair Judgement: fair Impression / Recommendations Impression 46 yo male with hx of depressive symptoms, self medicating with ETOH. Requiring only minimal Ativan prn via AWSS and currently doesn't appear to be in withdrawal. He is s/p gastic bypass and was counseled on how this affects his absorption of ETOH and antidepressant medications. He is amenable to outpatient therapy and medication. Protective Factors Assessment Employed: Yes Recommendations recommend switching Wellbutrin to regular release due to s/p gastric bypass so 100 mg TID (last dose late afternoon) consider Neurontin if sleep issues persist as also benefit for ETOH abuse ROIs completed for [facility] and [facility], liaison to facilitate first available appointments with therapist (dual) and psychiatric prescriber
[2017-04-19] MEDS ORDERED: MAGNESIUM SULFATE 1GM / D5W 1 GM in PREMIXED IN D5W 100 ML IV ONE (10:00)
--- NOTE | 2017-04-19 10:24 | Hospitalist Progress Note ---
Hospitalist Progress Note Date of Service Apr 19, 2017. Subjective Pt evaluation today including: conversation w/ patient Voiding: no voiding problems Pt says he is feeling much better. Has a chronic c/o right 4th and 5th finger numbness for months, just noticing it again now. Denies CP or SOB. Had some sweating and shaking yesterday evening which is now resolved. Is motivated to lose weight, start exercising again, and go to counseling and Psychiatrist after discharge. Is hoping to leave tomorrow as he has an important meeting to attend tomorrow later afternoon. Reports he drank 15 cups of water yesterday (550 mL each) and has been having watery stools since then. Tele with NSR and some ST All Other Systems: Reviewed and Negative Objective Vital Signs Date Time Temp Pulse Resp B/P (MAP) Pulse Ox O2 Delivery O2 Flow Rate FiO2 04/19/17 08:00 97 Room Air 04/19/17 07:20 36.2 87 20 146/96 (113) 97 Room Air 04/19/17 04:00 Room Air 04/19/17 03:45 37.1 96 22 149/85 (106) 97 Room Air 04/18/17 23:59 Room Air 04/18/17 23:48 36.6 106 23 137/94 (108) 98 Room Air 04/18/17 22:38 101 100/50 (67) 04/18/17 20:13 36.7 124 22 114/86 (95) 99 Room Air 04/18/17 20:10 Room Air 04/18/17 16:10 Room Air 04/18/17 15:36 36.5 109 18 160/96 (117) 97 Room Air 04/18/17 12:28 98 Room Air 04/18/17 12:23 110 04/18/17 11:28 100 18 132/82 98 Room Air Physical Exam General Appearance: WD/WN, no apparent distress, + obese Eyes: normal inspection, sclerae normal ENT: hearing grossly normal Neck: trachea midline Respiratory/Chest: lungs clear, normal breath sounds, no respiratory distress, no accessory muscle use Cardiovascular: regular rate, rhythm, no edema, no gallop, no murmur Abdomen: normal bowel sounds, non tender, soft, no organomegaly, no pulsatile mass Extremities: non-tender, normal inspection, no pedal edema, no calf tenderness Neurologic/Psychiatric: alert, normal mood/affect, oriented x 3, + pertinent finding (+decreased sensation to light touch in right ulnar distribution of right hand, neg Tinel's at elbow) Skin: normal color, warm/dry, no rash Laboratory Results Last 24 Hours Test 04/18/17 10:15 04/18/17 10:16 04/18/17 16:44 04/18/17 18:43 Urine Color DK YELLOW Urine Appearance CLEAR Urine pH 5.0 Urine Specific Walsh 1.022 Urine Protein 2+ Urine Glucose (UA) NEG Urine Ketones 3+ Urine Occult Blood 2+ Urine Nitrite NEG Urine Bilirubin NEG Urine Urobilinogen NEG Urine Leukocyte Esterase NEG Urine WBC (Auto) 1-5 /hpf Urine RBC (Auto) 0-4 /hpf Urine Hyaline Casts (Auto) 10-30 /lpf Urine Epithelial Cells (Auto) 20-30 /lpf Urine Bacteria (Auto) NEG Urine Opiates Screen NEG Urine Methadone, Qualitative NEG Urine Barbiturates NEG Urine Phencyclidine (PCP) Level NEG Ur Amphetamine/Methamphetamine NEG MDMA (Ecstasy) Screen NEG Urine Benzodiazepines Screen NEG Urine Cocaine Metabolite NEG Urine Marijuana (THC) NEG White Blood Count 6.89 K/uL Red Blood Count 5.05 M/uL Hemoglobin 12.1 g/dL Hematocrit 37.4 % Mean Corpuscular Volume 74.1 fL Mean Corpuscular Hemoglobin 24.0 pg Mean Corpuscular Hemoglobin Concent 32.4 g/dl Platelet Count 167 K/uL Mean Platelet Volume 9.2 fL Neutrophils (%) (Auto) 85.4 % Lymphocytes (%) (Auto) 9.3 % Monocytes (%) (Auto) 3.6 % Eosinophils (%) (Auto) 1.0 % Basophils (%) (Auto) 0.4 % Neutrophils # (Auto) 5.88 K/uL Lymphocytes # (Auto) 0.64 K/uL Monocytes # (Auto) 0.25 K/uL Eosinophils # (Auto) 0.07 K/uL Basophils # (Auto) 0.03 K/uL RDW Standard Deviation 45.5 fL RDW Coefficient of Variation 17.0 % Immature Granulocyte % (Auto) 0.3 % Immature Granulocyte # (Auto) 0.02 K/uL Prothrombin Time 10.7 SECONDS Prothromb Time International Ratio 1.0 Activated Partial Thromboplast Time 23.2 SECONDS Partial Thromboplastin Ratio 0.9 Sodium Level 134 mmol/L Potassium Level 3.4 mmol/L Chloride Level 96 mmol/L Carbon Dioxide Level 19 mmol/L Anion Gap 19.0 mmol/L Blood Urea Nitrogen 7 mg/dl Creatinine 0.98 mg/dl Est Creatinine Clear Calc Drug Dose 136.5 ml/min Estimated GFR () 108.2 Estimated GFR (Non- 93.4 BUN/Creatinine Ratio 7.1 Random Glucose 107 mg/dl Estimated Average Glucose 146 mg/dl Hemoglobin A1c 6.7 % Calcium Level 8.4 mg/dl Total Bilirubin 0.5 mg/dl Direct Bilirubin 0.2 mg/dl Aspartate Amino Transf (AST/SGOT) 1600 U/L Alanine Aminotransferase (ALT/SGPT) 884 U/L Alkaline Phosphatase 130 U/L Total Creatine Kinase 1029 U/L 981 U/L Total Protein 8.3 gm/dl Albumin 3.6 gm/dl Lipase 173 U/L Thyroid Stimulating Hormone (TSH) 1.390 uIu/ml Salicylates Level 3.6 mg/dl Acetaminophen Level < 2 ug/ml Ethyl Alcohol mg/dL 114.0 mg/dl Hepatitis B Surface Antigen NEG Hepatitis C Antibody NEG Bedside Glucose 243 mg/dl Creatine Kinase MB 9.5 ng/ml Creatine Kinase MB Ratio 1.0 Troponin I < 0.015 ng/ml Test 04/18/17 20:10 04/19/17 02:21 04/19/17 05:53 Bedside Glucose 206 mg/dl Total Creatine Kinase 842 U/L Creatine Kinase MB 5.7 ng/ml Creatine Kinase MB Ratio 0.7 Troponin I < 0.015 ng/ml White Blood Count 4.07 K/uL Red Blood Count 4.69 M/uL Hemoglobin 11.1 g/dL Hematocrit 34.6 % Mean Corpuscular Volume 73.8 fL Mean Corpuscular Hemoglobin 23.7 pg Mean Corpuscular Hemoglobin Concent 32.1 g/dl Platelet Count 138 K/uL Mean Platelet Volume 9.1 fL Neutrophils (%) (Auto) 75.0 % Lymphocytes (%) (Auto) 16.0 % Monocytes (%) (Auto) 4.9 % Eosinophils (%) (Auto) 3.7 % Basophils (%) (Auto) 0.2 % Neutrophils # (Auto) 3.05 K/uL Lymphocytes # (Auto) 0.65 K/uL Monocytes # (Auto) 0.20 K/uL Eosinophils # (Auto) 0.15 K/uL Basophils # (Auto) 0.01 K/uL RDW Standard Deviation 44.9 fL RDW Coefficient of Variation 16.8 % Immature Granulocyte % (Auto) 0.2 % Immature Granulocyte # (Auto) 0.01 K/uL Sodium Level 133 mmol/L Potassium Level 3.3 mmol/L Chloride Level 97 mmol/L Carbon Dioxide Level 29 mmol/L Anion Gap 7.0 mmol/L Blood Urea Nitrogen 7 mg/dl Creatinine 1.00 mg/dl Est Creatinine Clear Calc Drug Dose 133.8 ml/min Estimated GFR () 105.6 Estimated GFR (Non- 91.1 BUN/Creatinine Ratio 7.4 Random Glucose 152 mg/dl Calcium Level 8.9 mg/dl Magnesium Level 1.7 mg/dl Iron Level 39 mcg/dl Total Iron Binding Capacity 378 mcg/dl Transferrin 292 mg/dl Transferrin % Saturation 10 % Ferritin 95.7 ng/ml Total Bilirubin 0.7 mg/dl Direct Bilirubin 0.2 mg/dl Aspartate Amino Transf (AST/SGOT) 914 U/L Alanine Aminotransferase (ALT/SGPT) 732 U/L Alkaline Phosphatase 154 U/L Total Protein 7.0 gm/dl Albumin 3.2 gm/dl Vitamin B12 Level 1919 pg/mL Folate 22.61 ng/mL Assessment and Plan This patient is a 46-year-old male with a history of obesity status post gastric bypass surgery, depression, hypertension, hyperlipidemia, prediabetes versus diabetes, who presents to the ER with complaint of severe depression and need for alcohol detoxification. He was found in what was thought to be new onset atrial flutter with a rate in the low 100s, as well as a significant transaminitis. However, review of ECGs with radiologist chief of breast imaging confirms he is in normal sinus rhythm with artifact. He was found to be dehydrated with hypokalemia and a bicarbonate of 19 with an anion gap. He was initially hypertensive which improved with giving him his home dose of lisinopril/HCT. He denies any chest pain, shortness of breath, abdominal pain, nausea/vomiting, diarrhea, constipation, bloody stools, or any other symptoms. He denies suicidal or homicidal ideations and is very eager to get help for his substance abuse issues. He has no history of alcohol withdrawal in the past. He reports he normally drinks several beers a day with dinner, but for the last week, he has drank 3 large handle jugs of rum in a one-week period. He also reports stopping all of his medications about 2 weeks ago. He will be admitted for alcohol detoxification, hepatitis most likely of the alcoholic type. Alcohol abuse/alcohol detoxification/metabolic acidosis/hypokalemia/Sinus tachycardia-no history of significant withdrawal in the past. Alcohol level 114 on admission. Dehydrated from poor by mouth intake over the last week. Improving, did require a few doses of ativan yesterday HCO3 normal now at 29 from 19, AG closed -Monitor on telemetry today but if ECHO normal, can transfer to medical floor later today -Alcohol withdrawal protocol with when necessary Ativan only at this time -Banana bag daily for 3 days, then transition to by mouth thiamine and B12 -Checked B12 and folate levels--> normal but drawn after given banana bag -Encouraged abstinence -Agreeable to outpatient therapy upon discharge as per psychiatric consultation -Sinus tachycardia, not atrial flutter as initially suspected on admission-has responded to IV fluids--> dc IVFs -Replaced potassium in IV fluids and po today, replace Magnesium today -Follow PRP, Magnesium -seems low risk for withdrawal, could likely dc to home tomorrow with prn ativan Rx Alcoholic Hepatitis/Hepatic steatosis-AST 1600, ALT 884, bilirubin is normal, no abdominal pain all on admission. LFTs all trending downward today. Most likely alcoholic hepatitis and would be reversible. Platelets are low-normal, INR normal Liver ultrasound with fatty liver, no gallstones, otherwise suboptimal penetration -f/u acute viral hepatitis panel, follow LFTs daily here and with PCP after dc -Encouraged abstinence from alcohol and this should resolve Major depressive disorder-likely exacerbated by stopping antidepressant medication 2 weeks ago and alcohol abuse disorder. He is currently not suicidal or homicidal. -Appreciate psychiatric consultation -recommended switching to immediate release bupropion due to gastric bypass and poor absorption--> start bupropion 100mg tid with last dose late afternoon -Psych recommends starting gabapentin for sleep at night if has difficulty with sleeping -Psych arranging outpt f/u referrals Diarrhea/H/o gastric bypass/Microcytic anemia-likely due to large volume water intake (although not recorded) but said he drank 15 of the 550 mL mugs of water yesterday in setting of gastric bypass/poor absorption. MCV low, mild anemia at 11.1 -advised to back down on po water intake -start PPI for gastric protection given increased risk of anastomosis ulcers with gastric bypass -start Fe tabs on discharge Hypertension/hyperlipidemia-blood pressure elevated on admission, improved with giving home dose of lisinopril/HCTZ -Continue lisinopril/HCT -Holding atorvastatin given transaminitis Diabetes mellitus II-HgbA1C here 6.7% which confirms DMII (pt thought "borderline diabetes" on admission) -ok to restart metformin this evening -Sliding-scale insulin with carbohydrate coverage with meals and Accu-Cheks -will need outpt PCP follow up Right cubital tunnel syndrome- chronic -recommended backwards elbow brace placement, avoidance of resting elbow on hard surfaces (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
[2017-04-19] MEDS ORDERED: PANTOprazole SOD 40 MG TAB PO ONE (10:45)
[2017-04-19] MEDS: LORAZEPAM 0.5 MG TAB PO PRN ×3 (12:00→22:21)
--- NOTE | 2017-04-19 14:16 | ECHOCARDIOGRAM REPORT ---
*NOTICE TO RECEIVING REPUBLICAN AGENCY This information is strictly Confidential and protected under [place] law. [place] law prohibits you from making any further disclosure of this information unless further disclosure is expressly permitted by the written consent of the person to whom it pertains or is authorized by law. A general authorization for the release of medical or other information is not sufficient for this purpose. Hospital accepts no responsibility if the information is made available to any other person, INCLUDING THE PATIENT. Interpretation Summary * Name: CHARMAINE CHRISTIANSON Study Date: 04/18/2017 01:23 PM BP: 132/82 mmHg * Patient Location: C.EDB HR: 110 * : 1970 (M/d/yyyy) Gender: Male Height: 69 in * Age: 46 yrs Ethnicity: [place] Weight: 319 lb * Ordering Physician: Keya Rubalcava * Referring Physician: Self, Referred * Performed By: Jesse Davis RDCS * * Reason For Study: A-Flutter * BSA: 2.5 m2 * -- Conclusions -- * The left ventricle is hyperdynamic. * No regional wall motion abnormalities noted. * Ejection Fraction = >70 %. * There is borderline concentric left ventricular hypertrophy. * Grade I diastolic dysfunction, (abnormal relaxation pattern). * No significant valvular pathology. Procedure Details * A complete two-dimensional transthoracic echocardiogram was performed (2D, M-mode, Doppler and color flow Doppler). * The study was technically difficult, but visualization was adequate with the administration of Definity ultrasound contrast. * A contrast injection of Definity was performed to improve assessment of LV function. * Contrast was injected into an intravenous site in the right arm. * One vial of Definity ultrasound contrast was diluted in normal saline to a total volume of 10 ml. A total of '2' ml of solution was administered during imaging. * Lot # [id number] of Definity utilized for procedure. * Expiration date . * The attending nurse who injected the contrast agent was STACIE Carlton. Left Ventricle * The left ventricle is normal in size. * There is borderline concentric left ventricular hypertrophy. * The left ventricle is hyperdynamic. * Ejection Fraction = >70 %. * No regional wall motion abnormalities noted. Right Ventricle * The right ventricle is grossly normal size. * The right ventricular systolic function is normal as assessed by tricuspid annular plane systolic excursion (TAPSE) (normal >1.5 cm). Atria * The left atrium is mildly dilated. * Right atrium not well visualized. * There is no evidence of atrial septal defect, but resolution does not allow assessment for a patent foramen ovale. Mitral Valve * The mitral valve is grossly normal. * There is no mitral valve stenosis. * Significant mitral regurgitation is absent. Tricuspid Valve * The tricuspid valve is not well visualized, but is grossly normal. * Significant tricuspid regurgitation is absent. Aortic Valve * The aortic valve is not well visualized. * The aortic valve opens well. * No hemodynamically significant valvular aortic stenosis. * There is no significant aortic regurgitation. Pulmonic Valve * The pulmonary valve is not well seen, but the Doppler examination is normal without significant regurgitation or stenosis. Great Vessels * The aortic root is normal size. * The pulmonary artery is not well visualized, but is probably normal size. * Normal inferior vena cava size and collapsability with sniff indicates a normal right atrial pressure of 3 mmHg Left Ventricular Diastolic Function * Grade I diastolic dysfunction, (abnormal relaxation pattern). MMode 2D Measurements and Calculations IVSd 1.2 cm IVSs 1.7 cm LVIDd 4.7 cm LVIDs 2.9 cm LVPWd 1.2 cm LVPWs 1.6 cm IVS/LVPW 1.0 FS 37.7 % EDV(Teich) 103.9 ml ESV(Teich) 33.6 ml EF(Teich) 67.7 % EDV(cubed) 105.9 ml ESV(cubed) 25.7 ml EF(cubed) 75.8 % % IVS thick 41.1 % % LVPW thick 34.6 % LV mass(C)d 215.9 grams LV mass(C)dI 85.7 grams/m\S\2 LV mass(C)s 185.0 grams LV mass(C)sI 73.5 grams/m\S\2 SV(Teich) 70.4 ml SI(Teich) 27.9 ml/m\S\2 SV(cubed) 80.2 ml SI(cubed) 31.8 ml/m\S\2 Ao root diam 3.3 cm Ao root area 8.7 cm\S\2 ACS 2.3 cm LA dimension 3.5 cm asc Aorta Diam 3.4 cm LA/Ao 1.1 LVOT diam 2.0 cm LVOT area 3.0 cm\S\2 LVAd ap4 29.9 cm\S\2 LVLd ap4 7.8 cm EDV(MOD-sp4) 92.9 ml EDV(sp4-el) 97.3 ml LVAs ap4 12.4 cm\S\2 LVLs ap4 6.1 cm ESV(MOD-sp4) 22.6 ml ESV(sp4-el) 21.3 ml EF(MOD-sp4) 75.7 % EF(sp4-el) 78.1 % LVAd ap2 33.7 cm\S\2 LVLd ap2 8.5 cm EDV(MOD-sp2) 105.1 ml EDV(sp2-el) 113.2 ml LVAs ap2 16.2 cm\S\2 LVLs ap2 7.2 cm ESV(MOD-sp2) 29.6 ml ESV(sp2-el) 31.2 ml EF(MOD-sp2) 71.9 % EF(sp2-el) 72.4 % LVLd %diff 8.4 % EDV(MOD-bp) 104.5 ml LVLs %diff 14.6 % ESV(MOD-bp) 26.9 ml EF(MOD-bp) 74.3 % SV(MOD-sp4) 70.3 ml SI(MOD-sp4) 27.9 ml/m\S\2 SV(MOD-sp2) 75.5 ml SI(MOD-sp2) 30.0 ml/m\S\2 SV(MOD-bp) 77.6 ml SI(MOD-bp) 30.8 ml/m\S\2 SV(sp4-el) 76.0 ml SI(sp4-el) 30.2 ml/m\S\2 SV(sp2-el) 82.0 ml SI(sp2-el) 32.5 ml/m\S\2 Doppler Measurements and Calculations MV E max cuco 94.6 cm/sec MV A max cuco 128.2 cm/sec MV E/A 0.74 MV dec time 0.30 sec Ao V2 max 200.1 cm/sec Ao max PG 16.0 mmHg Ao max PG (full) 5.1 mmHg FORTINO(V,A) 2.5 cm\S\2 FORTINO(V,D) 2.5 cm\S\2 LV V1 max PG 11.0 mmHg LV V1 max 165.5 cm/sec PA V2 max 126.8 cm/sec PA max PG 6.4 mmHg
[2017-04-19] MEDS: METFORMIN HCL 500 MG TAB PO SCH (16:47)
[2017-04-19] MEDS: FERROUS SULFATE 325 MG TAB PO SCH (16:55)
[2017-04-19] MEDS ORDERED: CHLORDIAZEPOXIDE 25 MG CAP PO SCH (23:30)
[2017-04-19] MEDS ORDERED: LORAZEPAM 2 MG/ML 1 ML VIAL IV PRN (23:30)
[2017-04-19] MEDS ORDERED: HALOPERIDOL LACTATE 5 MG/ML 1 ML VIAL IM STA (23:35)
[2017-04-19] MEDS ORDERED: LORAZEPAM 1MG IV PHA DISPENSED IV PRN (23:45)
[2017-04-20 00:15] VITALS: BP 147/106; PULSE 119; O2SAT 93
[2017-04-20] MEDS ORDERED: LORAZEPAM 1 MG TAB ONE (00:23)
[2017-04-20] MEDS ORDERED: NURSING VERBAL MED ORDER ONE ×2 (00:30→03:30)
[2017-04-20] MEDS ORDERED: LORAZEPAM 1 MG TAB PO STA (00:42)
[2017-04-20 01:09] VITALS: BP 139/94; PULSE 108
[2017-04-20] MEDS: CHLORDIAZEPOXIDE 25MG STARTING DOSE PO SCH ×3 (01:54→12:28)
[2017-04-20] MEDS ORDERED: HALOPERIDOL LACTATE 5 MG/ML 1 ML VIAL ONE (03:28)
[2017-04-20] MEDS ORDERED: HALOPERIDOL LACTATE 5 MG/ML 1 ML VIAL IM STA (03:35)
[2017-04-20] MEDS: HEPARIN SOD 5000 UNIT/0.5 ML CARP SQ SCH (06:00)
[2017-04-20 07:14] LABS: BASO % 0.4 %; BASO ABS # 0.02 K/uL (0-0.2); EOS % 3.9 %; EOS ABS # 0.18 K/uL (0-0.5); HEMOGLOBIN 11.4 g/dL (14.0-18.0); IG# 0.01 K/uL (0.00-0.02); LYMPH ABS # 0.97 K/uL (1.2-3.4); MEAN CELL VOLUME 74.7 fL (80-100); MEAN CORPUSCULAR HEMOGLOBIN 23.7 pg (25-34); MEAN CORPUSCULAR HGB CONC 31.7 g/dl (32-36); MEAN PLATELET VOLUME 9.9 fL (7.4-10.4); MONO % 7.1 %; MONO ABS # 0.33 K/uL (0.11-0.59); NEUT % 67.4 %; NEUT ABS # 3.12 K/uL (1.4-6.5); PLATELET COUNT 133 K/uL (130-400); RED CELL DISTRIBUTION WIDTH CV 17.1 % (11.5-14.5); RED CELL DISTRIBUTION WIDTH SD 46.1 fL (36.4-46.3); WHITE BLOOD COUNT 4.63 K/uL (4.8-10.8)
[2017-04-20 07:38] LABS: ALBUMIN 3.5 gm/dl (3.4-5.0); CREATININE 0.99 mg/dl (0.60-1.40); POTASSIUM 3.7 mmol/L (3.5-5.1); TOTAL PROTEIN 7.5 gm/dl (6.4-8.2)
[2017-04-20 07:40] VITALS: BP 107/72; PULSE 65; TEMP 36.5; O2SAT 98
[2017-04-20] MEDS: MULTI-VITAMIN INFUSION INJ 10 ML, THIAMINE HCL INJ 100 MG, FoLIC ACID INJ 1 MG in SODIU... IV SCH (07:40)
[2017-04-20 07:52] VITALS: BP 135/88; PULSE 88; TEMP 36.7; O2SAT 94
[2017-04-20] MEDS ORDERED: PANTOprazole SOD 40 MG TAB PO SCH (08:00)
[2017-04-20] MEDS: LISINOPRIL/HCTZ 10/12.5MG TAB PO SCH (08:17)
[2017-04-20] MEDS: METFORMIN HCL 500 MG TAB PO SCH (08:18)
[2017-04-20] MEDS: FERROUS SULFATE 325 MG TAB PO SCH (08:18)
[2017-04-20] MEDS: INSULIN HUMAN REGULAR SC SCH ×2 (08:23→12:32)
[2017-04-20] MEDS ORDERED: WLL100 PO (10:28)
[2017-04-20] MEDS ORDERED: PRT40 PO (10:28)
[2017-04-20] MEDS ORDERED: FRRS300 PO (10:28)
[2017-04-20] MEDS ORDERED: FLV1 PO (10:28)
[2017-04-20] MEDS ORDERED: ATV5 PO (10:28)
[2017-04-20] MEDS ORDERED: MULT-589 PO (10:28)
[2017-04-20] MEDS ORDERED: THM100 PO (10:28)
[2017-04-20] MEDS ORDERED: LBR25 PO (10:28)
--- NOTE | 2017-04-20 10:34 | Discharge Instructions ---
Discharge Instructions Date of Service Apr 20, 2017. Admission Reason for Admission: Alcohol detoxification, alcoholic hepatitis Discharge Discharge Diagnosis / Problem: Alcohol detoxification/dependence, alcoholic hepatitis Discharge Goals Goal(s): Improve disease control, Diagnostic testing, Therapeutic intervention Activity Recommendations Activity Limitations: resume your previous activity Lifting Limitations: none Exercise/Sports Limitations: gradually increase as tolerated Shower/Bathe: no limitations Driving or Machine Use: no driving while taking medications that can make you drowsy . Instructions / Follow-Up Instructions / Follow-Up Please take the medication for alcohol withdrawal as prescribed ( chlordiazepoxide) and you can take lorazepam as needed for breakthrough symptoms on top of that. Please follow up as scheduled with Psychiatry/Psychology. Please follow up with your new PCP within 1-2 weeks as scheduled for you. Please have your PCP repeat your liver blood work in 1 week to ensure it is returning to normal. You should HOLD OFF on taking your atorvastatin until your liver blood work is back to normal. Current Hospital Diet Patient's current hospital diet: Diabetes Type 2 Diet Discharge Diet Recommended Diet: Diabetes Type 2 Diet Procedures Procedures Performed: Liver ultrasound Chest xray Pending Studies Studies pending at discharge: no Laboratory Results Last 24 Hours Test 04/19/17 11:07 04/19/17 16:20 04/19/17 20:08 04/19/17 22:16 Bedside Glucose 118 mg/dl 135 mg/dl 155 mg/dl 134 mg/dl Test 04/20/17 06:43 04/20/17 07:27 White Blood Count 4.63 K/uL Red Blood Count 4.82 M/uL Hemoglobin 11.4 g/dL Hematocrit 36.0 % Mean Corpuscular Volume 74.7 fL Mean Corpuscular Hemoglobin 23.7 pg Mean Corpuscular Hemoglobin Concent 31.7 g/dl Platelet Count 133 K/uL Mean Platelet Volume 9.9 fL Neutrophils (%) (Auto) 67.4 % Lymphocytes (%) (Auto) 21.0 % Monocytes (%) (Auto) 7.1 % Eosinophils (%) (Auto) 3.9 % Basophils (%) (Auto) 0.4 % Neutrophils # (Auto) 3.12 K/uL Lymphocytes # (Auto) 0.97 K/uL Monocytes # (Auto) 0.33 K/uL Eosinophils # (Auto) 0.18 K/uL Basophils # (Auto) 0.02 K/uL RDW Standard Deviation 46.1 fL RDW Coefficient of Variation 17.1 % Immature Granulocyte % (Auto) 0.2 % Immature Granulocyte # (Auto) 0.01 K/uL Sodium Level 136 mmol/L Potassium Level 3.7 mmol/L Chloride Level 102 mmol/L Carbon Dioxide Level 26 mmol/L Anion Gap 8.0 mmol/L Blood Urea Nitrogen 7 mg/dl Creatinine 0.99 mg/dl Est Creatinine Clear Calc Drug Dose 135.8 ml/min Estimated GFR () 106.9 Estimated GFR (Non- 92.2 BUN/Creatinine Ratio 6.8 Random Glucose 140 mg/dl Calcium Level 9.0 mg/dl Magnesium Level 2.1 mg/dl Total Bilirubin 0.6 mg/dl Direct Bilirubin 0.2 mg/dl Aspartate Amino Transf (AST/SGOT) 383 U/L Alanine Aminotransferase (ALT/SGPT) 570 U/L Alkaline Phosphatase 154 U/L Total Protein 7.5 gm/dl Albumin 3.5 gm/dl Bedside Glucose 133 mg/dl Hemoglobin A1c Test 04/18/17 10:16 Range/Units Estimated Average Glucose 146 mg/dl Hemoglobin A1c 6.7 H 4.5-5.6 % Medical Emergencies . Who to Call and When: Medical Emergencies: If at any time you feel your situation is an emergency, please call 911 immediately. . Non-Emergent Contact Non-Emergency issues call your: Primary Care Provider, Specialist (Psychiatrist ) Call Non-Emergent contact if: you have a fever, temperature is above 100.5, you have any medication questions you are having worsening tremor, sweating, anxiety, depressive symptoms, or hallucinations. . . "Provider Documentation" section prepared by Keya Rubalcava. . VTE Core Measure Inpt VTE Proph given/why not?: Unfractionated heparin SQ [place] Drug Monitoring Program Search Results: patient reviewed within database, no issues identified
[2017-04-20 10:42] LABS: HEPATITIS A IGM TC 51813E NON-REACTIVE (NON-REACTIVE); HEPATITIS B CORE IGM TC51854R NON-REACTIVE (NON-REACTIVE)
[2017-04-20 10:48] VITALS: BP 135/88; PULSE 88; TEMP 36.7; O2SAT 94
--- NOTE | 2017-04-20 21:19 | Discharge Summary ---
Discharge Summary Date of Service Apr 20, 2017. Discharge Summary Admission Date: Apr 18, 2017 at 12:23 Discharge Date: Apr 20, 2017 Discharge Disposition: Home Principal Diagnosis: Alcohol dependence/detoxification,alcoholic hepatitis Problems/Secondary Diagnoses: Obesity Status post gastric bypass surgery Major depressive disorder Hypertension Hyperlipidemia Diabetes mellitus II, controlled, not on insulin alf Hypokalemia Hypomagnesemia Metabolic acidosis Sinus tachycardia Current smoker Chronic diastolic CHF-grade 1 diastolic dysfunction on ECHO-compensated Hepatic steatosis Diarrhea Microcytic anemia of iron deficiency Right cubital tunnel syndrome Procedures: 1. ECHO-hyperdynamic EF, borderline LVH, grade 1 diastolic dysfunction, no wall motion abnormalities 2. Chest xray: Mild cardiomegaly without evidence of pulmonary edema. Mild elevation/eventration of the right hemidiaphragm. 3. Liver US-fatty liver, no gallstones, suboptimal penetration Consultations: Psychiatry Medication Reconciliation New Medications: Folic Acid (Folic Acid) 1 Mg Tab 1 MG PO DAILY for 30 Days, #30 TAB OTC Lorazepam (Lorazepam) 0.5 Mg Tab 0.5 MG PO Q6H PRN for anxiety,tremor, #12 TAB Multivitamins (Daily Sivakumar) 1 Tab Tab 1 TAB PO DAILY for 30 Days, #30 TAB OTC Thiamine HCl (Vitamin B-1) 100 Mg Tab 100 MG PO DAILY for 30 Days, #30 TABS OTC Bupropion HCl (Bupropion HCl) 100 Mg Tab 100 MG PO TIDM for 30 Days, #90 TAB Chlordiazepoxide (Chlordiazepoxide HCl) 25 Mg Cap 25 MG PO Q8H, #12 CAP 0 Refills x 2 days, then 25mg bid x 2 days, then 25mg once daily x 2 days, then STOP Ferrous Sulfate (Ferrous Sulfate) 325 Mg Tab 325 MG PO BIDM for 30 Days, TAB OTC Pantoprazole (Pantoprazole Sodium) 40 Mg Tab 40 MG PO QAM for 30 Days, #30 TAB Continued Medications: Hctz/Lisinopril (Lisinopril/Hctz 10/12.5 Mg) 1 Ea Tab 1 TAB PO DAILY, TAB Metformin Hcl (Glucophage) 1,000 Mg Tab 1000 MG PO BID, TAB Discontinued Medications: Atorvastatin (Lipitor) 40 Mg Tab 40 MG PO DAILY, TAB Bupropion (Wellbutrin Sr) 150 Mg Ertab 150 MG PO BID, TAB Discharge Exam Had some paranoia last night and auditory and visual hallucinations, but remembers it all and resolved after being given Librium. He was then given Haldol and he fell asleep. Feels great today, is ready to get home and anxious for discharge. Vitals good, labs improving. No CP or SOB, no abd pain, moving bowels normally, making urine. Physical Exam Vitals reviewed General Appearance: WD/WN, no apparent distress, + obese Eyes: normal inspection, sclerae normal ENT: hearing grossly normal Neck: trachea midline Respiratory/Chest: lungs clear, normal breath sounds, no respiratory distress, no accessory muscle use Cardiovascular: regular rate, rhythm, no edema, no gallop, no murmur Abdomen: normal bowel sounds, non tender, soft, no organomegaly, no pulsatile mass Extremities: non-tender, normal inspection, no pedal edema, no calf tenderness Neurologic/Psychiatric: alert, normal mood/affect, oriented x 3 Skin: normal color, warm/dry, no rash Review of Systems: Constitutional: No fever, No chills Eyes: No problem reported ENT: No problem reported Respiratory: No problem reported Cardiovascular: No problem reported Abdomen: No problem reported Musculoskeletal: No problem reported Genitourinary - Male: No problem reported Neurologic: No problem reported Psychiatric: No problem reported Endocrine: No problem reported Hematologic / Lymphatic: No problem reported Integumentary: No problem reported Hospital Course This patient is a 46-year-old male with a history of obesity status post gastric bypass surgery, depression, hypertension, hyperlipidemia, prediabetes versus diabetes, who presents to the ER with complaint of severe depression and need for alcohol detoxification. He was found in what was initially thought to be new onset atrial flutter with a rate in the low 100s, as well as a significant transaminitis. 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 He was found to be dehydrated with hypokalemia and a bicarbonate of 19 with an anion gap. He was hypertensive which improved with giving him his home dose of lisinopril/HCT. He denies any chest pain, shortness of breath, abdominal pain, nausea/vomiting, diarrhea, constipation, bloody stools, or any other symptoms. He denies suicidal or homicidal ideations and is very eager to get help for his substance abuse issues. He has no history of alcohol withdrawal in the past. He reports he normally drinks 6-10 beers a day with dinner, but for the last week, he has drank 3 large handle jugs of rum in a one-week period. He also reports stopping all of his medications about 2 weeks ago. He was admitted for alcohol detoxification, and alcoholic hepatitis. Alcohol abuse/alcohol detoxification/metabolic acidosis/hypokalemia/Sinus tachycardia-no history of significant withdrawal in the past. Alcohol level 114 on admission. Dehydrated from poor by mouth intake over the last week. Did require several doses of Ativan, as well as Librium. He did have some paranoia and hallucinations on the second night of his hospital stay which resolved with Librium and Haldol. He was doing very well after that was stable for discharge to home on a Librium taper with when necessary Ativan. HCO3 normal now at 29 from 19, AG closed -He was given a Banana bag daily for 2 days, then transitioned to by mouth thiamine and B12, as well as a multivitamin on discharge -Checked B12 and folate levels--> normal but drawn after given banana bag -Encouraged abstinence after discharge -Agreeable to outpatient therapy upon discharge as per psychiatric consultation- he already set up the first appointment for next week -Sinus tachycardia, not atrial flutter as initially suspected on admission-has responded to IV fluids and treatment of alcohol withdrawal -Replaced potassium, replace Magnesium Alcoholic Hepatitis/Hepatic steatosis-AST 1600, ALT 884, bilirubin is normal, no abdominal pain all on admission. LFTs continued to trend downward through the hospital stay. Most likely alcoholic hepatitis and would be reversible. Platelets are low-normal, INR normal Liver ultrasound with fatty liver, no gallstones, otherwise suboptimal penetration Acute viral hepatitis panel was negative. ALT 570, AST 383, alkaline phosphatase 154 all on the day of discharge. He should have his LFTs followed by his PCP until they return to normal. -He will not restart his atorvastatin until LFTs improved and as directed by his PCP Major depressive disorder-likely exacerbated by stopping antidepressant medication 2 weeks ago and alcohol abuse disorder. He is currently not suicidal or homicidal. -Appreciate psychiatric consultation-no need for inpatient psychiatric stay -recommended switching to immediate release bupropion due to gastric bypass and poor absorption--> started bupropion 100mg tid with last dose late afternoon -Psych recommends starting gabapentin for sleep at night if has difficulty with sleeping in the future -Psych arranging outpt f/u referrals H/o gastric bypass/Microcytic anemia of iron deficiency- MCV low, mild anemia at 11.1, transferrin saturation low at 10%, likely due to poor absorption -started PPI for gastric protection given increased risk of anastomosis ulcers with gastric bypass -start Fe tabs -Follow CBC and iron levels, as well as B12 as an outpatient Hypertension/hyperlipidemia-blood pressure elevated on admission, improved with giving home dose of lisinopril/HCTZ -Continue lisinopril/HCT -Holding atorvastatin given transaminitis Diabetes mellitus II-HgbA1C here 6.7% which confirms DMII (pt thought "borderline diabetes" on admission) -Continue metformin 1000 mg twice a day -will need outpt PCP follow up for all routine maintenance and diabetic care Right cubital tunnel syndrome- chronic -recommended backwards elbow brace placement, avoidance of resting elbow on hard surfaces (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 Discharge Instructions Please refer to the electronic Patient Visit Report (Discharge Instructions) for additional information. Follow-Up PCP within 1-2 weeks Psychiatry within 1 week as scheduled Needs repeat LFTs in 1 week Additional Copies To Myrna Murray DO
[2017-04-21] MEDS ORDERED: CHLORDIAZEPOXIDE 25MG 2ND DOSE PO SCH (02:00)
[2017-04-22] MEDS ORDERED: CHLORDIAZEPOXIDE 10MG 3RD DOSE PO SCH (02:00)
[2017-04-23] MEDS ORDERED: CHLORDIAZEPOXIDE 5MG 4TH DOSE PO SCH (06:00)
== END 2017-04-20 12:42 | disposition home or self-care (01) | DRG 897 ==
LOC: C.EDB 09:40 → C.2E 12:23 → ENRESERV 12:39 → C.MS4W 04-19 21:31 → C.MED 04-19 23:59
PROVIDERS: ADMIT Family Medicine; ATTEND Family Medicine
DX: F10.24 Alcohol dependence with alcohol-induced mood disorder (principal); I50.32 Chronic diastolic (congestive) heart failure; F32.9 Major depressive disorder, single episode, unspecified; K75.9 Inflammatory liver disease, unspecified; E78.5 Hyperlipidemia, unspecified; Z83.3 Family history of diabetes mellitus; F17.210 Nicotine dependence, cigarettes, uncomplicated; E88.81 Metabolic syndrome and other insulin resistance; Z91.14 Patient's other noncompliance with medication regimen; E83.42 Hypomagnesemia; D50.9 Iron deficiency anemia, unspecified; E66.9 Obesity, unspecified; K76.0 Fatty (change of) liver, not elsewhere classified; E11.9 Type 2 diabetes mellitus without complications; G56.21 Lesion of ulnar nerve, right upper limb